=== PATIENT | female | born 1960 | race Caucasian/White ===

== ENCOUNTER 2025-01-10 09:46 | Day surgery (SDC) | payer BC ==
[2025-01-07 13:08] VITALS: BMI 22.4
[2025-01-10] MEDS ORDERED: LIDO 2%/EPI 1:200000 PRESRVFRE (20 ML SDVIAL) ONE (12:42)
[2025-01-10] MEDS ORDERED: PROPOFOL 20 ML ONE ×2 (12:47→13:00)
[2025-01-10] MEDS ORDERED: MIDAZOLAM HCL 2 MG/2 ML SINGLE DOSE VIAL ONE (12:48)
[2025-01-10] MEDS ORDERED: ONDANSETRON 4 MG/2 ML VIAL ONE (12:54)
[2025-01-10] MEDS ORDERED: DEXAMETHASONE SOD PHOSPHATE 4 MG/1 ML VIAL ONE (12:54)
[2025-01-10] MEDS ORDERED: ONDANSETRON 4 MG/2 ML VIAL IVPUSH PRN (13:40)
[2025-01-10] MEDS ORDERED: LACTATED RINGERS SOLUTION 1,000 ML IV SCH (13:45)
[2025-01-10 14:31] VITALS: RESP 18; TEMP 97.3
[2025-01-10 15:05] VITALS: BP 126/68; PULSE 86
== END 2025-01-10 15:06 | disposition home or self-care (01) ==
LOC: FASU 09:46
PROVIDERS: ATTEND Orthopaedic Surgery Sports Medicine
PROC: 01N54ZZ Release Median Nerve, Percutaneous Endoscopic Approach (ICD-10-PCS; principal; 2025-01-10 13:13)
DX: G56.01 Carpal tunnel syndrome, right upper limb (principal)
CPT/HCPCS: 94760